=== PATIENT | male | born 1955 | race Two or more races ===

== ENCOUNTER 2018-04-10 11:30 | Emergency (ER) | payer OTHER ==
[~2018-04-10] VITALS: Ht 172.7 cm; Wt 74.8 kg
[2018-04-10] MEDS ORDERED: ZESTRIL40 M1 PO (13:28)
[2018-04-10] MEDS ORDERED: PERCOCET 10-321 EACH PO (13:28)
[2018-04-10] MEDS ORDERED: METOPROLOL ER-1 EAC2 PO (13:29)
[2018-04-10] MEDS ORDERED: AMBIEN5 MG PO (13:29)
[2018-04-10] MEDS ORDERED: TRAMADOL HCL50 MG PO (13:30)
[2018-04-10] MEDS ORDERED: MEDROLPACK PO (16:19)
== END 2018-04-10 22:10 | disposition home or self-care (01) ==
LOC: ER 11:30
DX: M54.5 Low back pain (principal)

== ENCOUNTER 2018-05-08 13:01 | Emergency (ER) | payer OTHER ==
[~2018-05-08] VITALS: Ht 172.7 cm; Wt 74.8 kg
[~2018-05-08 13:01] MED LIST: AMBIEN5 MG PO; MEDROLPACK PO; METOPROLOL ER-1 EAC2 PO; PERCOCET 10-321 EACH PO; TRAMADOL HCL50 MG PO; ZESTRIL40 M1 PO
== END 2018-05-08 22:56 | disposition home or self-care (01) ==
LOC: ER 13:01
DX: S01.81XA Laceration without foreign body of other part of head, initial encounter (principal); S30.0XXA Contusion of lower back and pelvis, initial encounter; W18.39XA Other fall on same level, initial encounter; Y93.89 Activity, other specified; Y92.098 Other place in other non-institutional residence as the place of occurrence of the external cause; Y99.8 Other external cause status

== ENCOUNTER 2018-05-24 12:27 | Emergency (ER) | payer OTHER ==
[~2018-05-24] VITALS: Ht 172.7 cm; Wt 72.6 kg
== END 2018-05-24 17:02 | disposition home or self-care (01) ==
LOC: ER 12:27
DX: Z48.02 Encounter for removal of sutures (principal)

== ENCOUNTER 2018-06-28 09:30 | Inpatient (IN) | payer OTHER ==
[~2018-06-28] VITALS: Ht 172.7 cm; Wt 72.6 kg
[2018-06-28] MEDS ORDERED: GABAPENTIN600 MG PO (11:07)
[2018-06-28] MEDS ORDERED: [UNRECOGNIZED DRUG - OTHER] PO (11:08)
[2018-07-06] MEDS ORDERED: GABAPENTIN800 MG PO (08:03)
[2018-07-06] MEDS ORDERED: DOCUSATE SODIU100 MG PO (08:03)
[2018-07-06] MEDS ORDERED: CIPROFLOXACIN750 MG PO (08:04)
[2018-07-06] MEDS ORDERED: PERCOCET 5-3251 EACH PO (08:05)
[2018-07-06] MEDS ORDERED: CLONAZEPAM1 MG PO (08:05)
== END 2018-07-06 16:26 | DRG 460 ==
LOC: O/R 07-05 06:37 → SURH 07-05 09:30 → PED 07-05 19:46
PROVIDERS: Orthopaedic Surgery Orthopaedic Surgery of the Spine
PROC: 0ST40ZZ Resection of Lumbosacral Disc, Open Approach (ICD-10-PCS; 2018-07-05)
PROC: 07DS3ZZ Extraction of Vertebral Bone Marrow, Percutaneous Approach (ICD-10-PCS; 2018-07-05)
PROC: 0SG30AJ Fusion of Lumbosacral Joint with Interbody Fusion Device, Posterior Approach, Anterior Column, Open Approach (ICD-10-PCS; principal; 2018-07-05 16:00)
DX: M43.17 Spondylolisthesis, lumbosacral region (principal); M51.17 Intervertebral disc disorders with radiculopathy, lumbosacral region; I10 Essential (primary) hypertension; M47.27 Other spondylosis with radiculopathy, lumbosacral region